=== PATIENT | male | born 1965 | race Two or more races ===

== ENCOUNTER 2024-06-29 13:30 | Emergency (ER) | payer MEDICARE, OTHER ==
[~2024-06-29] VITALS: Ht 182.9 cm; Wt 95.3 kg
[2024-06-29] MEDS ORDERED: KETOROLAC TROMETHAMINE 15 MG/ML VIAL ONE (14:11)
[2024-06-29] MEDS ORDERED: ACETAMINOPHEN ES 500 MG TABLET ONE (14:12)
[2024-06-29] MEDS: KETOROLAC TROMETHAMINE 15 MG/ML VIAL IM ONE (14:24)
[2024-06-29] MEDS: ACETAMINOPHEN ES 500 MG TABLET PO ONE (14:25)
[2024-06-29 14:50] VITALS: BP 163/83; TEMP 98.1; O2SAT 97
[2024-06-29 14:59] LABS: APPEARANCE,URINE CLEAR (CLEAR); BILIRUBIN,URINE NEGATIVE (NEGATIVE); BLOOD, URINE NEGATIVE Ery/uL (NEGATIVE); COLOR,URINE YELLOW (YELLOW); KETONES,URINE NEGATIVE (NEGATIVE); LEUKOCYTE ESTERASE ,URINE NEGATIVE (NEGATIVE); NITRITE, URINE NEGATIVE (NEGATIVE); PH,URINE 6.5 (5.0-8.0); PROTEIN,URINE NEGATIVE (NEGATIVE); UGLUCOSE NEGATIVE (NEGATIVE); UROBILINOGEN,URINE 0.2 EU/dL (0.2)
== END 2024-06-29 14:51 | disposition home or self-care (01) ==
LOC: ER 13:47
DX: G89.29 Other chronic pain (principal); M54.9 Dorsalgia, unspecified; F32.A Depression, unspecified; F41.9 Anxiety disorder, unspecified; F43.10 Post-traumatic stress disorder, unspecified; Z98.1 Arthrodesis status
CPT/HCPCS: 99283; 96372; 81003; J1885